=== PATIENT | female | born 1995 | race Caucasian/White ===

== ENCOUNTER 2017-12-15 02:09 | Emergency (ER) | payer SELFPAY ==
[~2017-12-15] VITALS: Ht 167.6 cm; Wt 81.6 kg
--- NOTE | 2017-12-15 02:30 | ED Psychosocial ---
General Chief Complaint: Substance Abuse Stated Complaint: ETOH Source: patient, EMS Exam Limitations: intoxication History of Present Illness Date Seen by Provider: Dec 15, 2017 Time Seen by Provider: 02:20 Initial Comments The patient presents to ER by EMS with chief complaint that she had been out drinking since 6:00 last night until 1:30 this morning and after she arrived at her apartment with her roommate she began to vomit all over the bathroom. The roommate then called 911 and police told her she should come to the ER to be evaluated and get some IV fluids. The patient states that she is stupid for having drank so much and drank about 4 mikes hard lemonades lots of beers mixed with something and lots of vodka mixed with something. She is having some nausea but no pain. She's vomited a small amount of bilious substance for EMS. The patient says she would like to feel better and then go home. She is expecting her brother and/or roommate, some clean clothes for her. The patient denies any suicidal ideation. Allergies and Home Medications Allergies Coded Allergies: No Allergy Information Available (Unverified , 12/15/17) Patient Home Medication List Home Medication List Reviewed: Yes Review of Systems Constitutional: No chills, No fever, No malaise EENTM: No ear discharge, No hearing loss, No ear pain Respiratory: No cough, No short of breath Cardiovascular: No chest pain, No edema Gastrointestinal: No abdominal pain, No diarrhea; nausea, vomiting Genitourinary: No discharge, No dysuria Past [id number]-[id number] Hx Patient Social History Alcohol Use: Regular Use Alcohol Beverage of Choice: Beer, Vodka Recreational Drug Use: No Smoking Status: Unknown if Ever Smoked Recent Foreign Travel: No Contact w/Someone Who Travel: No Physical Exam Vital Signs - First Documented 12/15/17 02:09 Temp 98.4 Pulse 80 Resp 20 B/P (MAP) 112/73 (86) Pulse Ox 100 O2 Delivery Room Air Capillary Refill : Height, Weight, BMI Height: '" Weight: lbs. oz. kg; BMI Method: General Appearance: mild distress, other HEENT: PERRL/EOMI, normal ENT inspection, pharynx normal Neck: non-tender, full range of motion, normal inspection Respiratory: chest non-tender, lungs clear, normal breath sounds, no respiratory distress, no accessory muscle use Cardiovascular: normal peripheral pulses, regular rate, rhythm, no edema Gastrointestinal: non tender, soft Neurologic/Psychiatric: alert, normal mood/affect, oriented x 3 Appearance/Memory: disheveled Behavior/Eye Contact: avoids eye contact Skin: normal color, warm/dry Progress/Results/Core Measures Results/Orders My Orders Orders - RACHEL MCGARRY Ondansetron Injection (Zofran Injectio (12/15/17 02:45) Medications Given in ED Current Medications Medications Dose Ordered Sig/Miguel Route Start Time Stop Time Status Last Admin Dose Admin Ondansetron HCl 8 mg ONCE ONCE IVP 12/15/17 02:45 12/15/17 02:46 DC 12/15/17 02:42 8 MG Vital Signs/I&O 12/15/17 02:09 Temp 98.4 Pulse 80 Resp 20 B/P (MAP) 112/73 (86) Pulse Ox 100 O2 Delivery Room Air Progress Progress Note #1: Time: 02:35 Progress Note EMS was initiated a liter of fluids and 4 mg Zofran. We'll give her another 8 mg Zofran if she is continuing to retch. We will reevaluate after her IV fluids are done and there is about 250 and at this time. Progress Note #2: Time: 03:31 Progress Note Patient's fluids are done and her brother is here rated take her home. Departure Impression Primary Impression: Alcohol intoxication Qualified Codes: F10.920 - Alcohol use, unspecified with intoxication, uncomplicated Disposition: 01 HOME, SELF-CARE Condition: Improved Departure-Patient Inst. Decision time for Depature: 03:32 Referrals: BRENNEN MARTINEZ DO (PCP/Family) Primary Care Physician Patient Instructions: ALCOHOL AND SUBSTANCE ABUSE Add. Discharge Instructions: Drink plenty of fluids in the morning. Follow-up with primary care as necessary. All discharge instructions reviewed with patient and/or family. Voiced understanding. RACHEL MCGARRY Dec 15, 2017 02:30
[2017-12-15] MEDS ORDERED: ONDANSETRON 4 MG/2 ML (SDV) Z0FRAN IVP ONE (02:45)
[2017-12-15 04:02] VITALS: BP 113/68
== END 2017-12-15 04:01 | disposition home or self-care (01) ==
LOC: ER 02:11
DX: F10.129 Alcohol abuse with intoxication, unspecified (principal)